=== PATIENT | male | born 1950 | race Caucasian/White ===

== ENCOUNTER → 2017-06-06 | Outpatient (CLI) | payer OTHER, MEDICARE | LOC: FIMAGING 10:10 | PROVIDERS: ATTEND Urology | DX: Z03.89 Encounter for observation for other suspected diseases and conditions ruled out (principal); M47.896 Other spondylosis, lumbar region ==

== ENCOUNTER → 2018-06-13 | Outpatient (CLI) | payer OTHER, MEDICARE | LOC: BMCIMAGING 11:49 | PROVIDERS: ATTEND Internal Medicine | DX: M25.532 Pain in left wrist (principal); Z87.81 Personal history of (healed) traumatic fracture ==